=== PATIENT | female | born 1940 | race Caucasian/White ===

== ENCOUNTER 2018-12-30 06:18 | Day surgery (SDC) | payer MEDICARE, OTHER ==
[2018-12-30] VITALS (9 sets, daily range): BP systolic 123–139; BP diastolic 63–75
[~2018-12-30] VITALS: Ht 170.2 cm; Wt 79.4 kg
[~2018-12-30 06:18] MED LIST: AUD IH; BUDE0.5A3 IH; DILT120T PO; ESOM40CA PO; GLYB2.5T5 PO; LEVO112T7 PO; LEVO500T89 PO; MOME17N NASAL; MONT10TA21 PO; OSEL75 PO; VALS160T2 PO
[2018-12-30] MEDS ORDERED: SODIUM CHLORIDE 0.9% 1000ML 1,000 ML IV ONE (06:23)
[2018-12-30] MEDS ORDERED: OMEP-272 PO (06:44)
[2018-12-30] MEDS ORDERED: ERGO2500 PO (06:44)
[2018-12-30] MEDS ORDERED: LEVO75TA10 PO (06:44)
[2018-12-30] MEDS ORDERED: LEVO50TA11 PO (06:44)
[2018-12-30] MEDS ORDERED: PROPOFOL 10 MG/ML 20ML VIAL IV ONE (07:26)
== END 2018-12-30 08:40 | disposition home or self-care (01) ==
LOC: DAH 06:18
PROVIDERS: ATTEND Internal Medicine
DX: R14.0 Abdominal distension (gaseous) (principal); D12.2 Benign neoplasm of ascending colon; K57.30 Diverticulosis of large intestine without perforation or abscess without bleeding; K64.1 Second degree hemorrhoids; K29.50 Unspecified chronic gastritis without bleeding; K44.9 Diaphragmatic hernia without obstruction or gangrene; K59.04 Chronic idiopathic constipation; I10 Essential (primary) hypertension; J45.909 Unspecified asthma, uncomplicated; E11.9 Type 2 diabetes mellitus without complications; M19.90 Unspecified osteoarthritis, unspecified site; Z86.010 Personal history of colon polyps; Z79.899 Other long term (current) drug therapy; Z80.0 Family history of malignant neoplasm of digestive organs; Z98.51 Tubal ligation status; Z88.0 Allergy status to penicillin; Z88.6 Allergy status to analgesic agent
CPT/HCPCS: 43239; 45380; 82948; 88305; A4215; A4221; A4222; A4223; A4606; A4615; A4663; J2704; J7030